=== PATIENT | female | born 1975 | race African-American/Black ===

== ENCOUNTER 2021-12-25 11:51 | Observation (INO) | payer OTHER ==
[~2021-12-25] VITALS: Ht 162.6 cm; Wt 114.0 kg
--- NOTE | 2021-12-25 12:50 | NUR ---
PATIENT TO ROOM VIA WHEELCHAIR.
[2021-12-25 14:46] LABS: HEMOGLOBIN 9.5 g/dl (12.0-16.0); IMMATURE GRANULOCYTES 0.1 % (0.0-5.0); MEAN CELL VOLUME 84.8 fL CALC (80.0-100.0); MEAN CORPUSCULAR HGB 27.8 pG CALC (26.0-32.0); MEAN CORPUSCULAR HGB CONC 32.8 g/dL CAL (32.0-36.0); NEUT# 6.27 thou/uL (2.00-7.15); RED BLOOD COUNT 3.42 mill/uL (4.20-5.60); RED CELL DISTRI WIDTH 18.7 % (11.5-15.5)
[2021-12-25 15:06] LABS: ALBUMIN 3.2 g/dL (3.2-5.0); ALKALINE PHOSPHATASE 453 u/l (38-126); AMYLASE 71 u/l (30-110); ANION GAP 9 (6-22 (CALC)); BILIRUBIN, TOTAL 1.9 mg/dL (0.0-1.4); BUN 4 mg/dL (7-17); BUN/CREATININE RATIO 7 (12-20 (CALC)); CARBON DIOXIDE 39 mmol/l (22-30); CHLORIDE 92 mmol/l (95-108); CREATININE 0.7 mg/dL (0.5-1.0); GFR > 60 ML/MIN (>=60 (CALC)); GFR FOR AFR.AMER. > 60 ML/MIN (>=60 (CALC)); LIPASE 396 u/l (23-300); SGOT/AST 263 u/l (14-36); SODIUM 138 mmol/l (137-146); TOTAL PROTEIN 8.9 g/dL (6.3-8.2)
[2021-12-25 15:09] LABS: POTASSIUM 1.8 mmol/l (3.5-5.1)
[2021-12-25] MEDS ORDERED: CYMBALTA60 MG PO (15:48)
[2021-12-25] MEDS ORDERED: PEPCID20 MG PO (15:48)
[2021-12-25] MEDS ORDERED: LYRICA50 MG PO (15:48)
[2021-12-25] MEDS ORDERED: TIZANIDINE HCL4 M1 PO (15:49)
[2021-12-25] MEDS ORDERED: FOLIC ACID1 MG PO (15:49)
[2021-12-25 19:41] LABS: URINE BILIRUBIN - DIPSTICK NEGATIVE (NEGATIVE); URINE BLOOD DIPSTICK NEGATIVE (NEGATIVE); URINE COLOR YELLOW; URINE GLUCOSE - DIPSTICK NEGATIVE (NEGATIVE); URINE KETONE TRACE mg/dL (NEGATIVE); URINE LEUK ESTERASE NEGATIVE (NEGATIVE); URINE PROTEIN - DIPSTICK NEGATIVE (NEG-TRACE); URINE SPECIFIC GRAVITY <=1.005; URINE UROBILINOGEN - DIPSTICK 0.2 E.U./dL (0.2)
[2021-12-25 19:45] LABS: URINE NITRITE - DIPSTICK NEGATIVE (Negative)
[2021-12-25 20:00] VITALS: BP 124/70
[2021-12-25 20:45] VITALS: BP 129/76
[2021-12-25 21:00] VITALS: BP 131/64
[2021-12-25 21:15] VITALS: BP 130/77
[2021-12-25 21:30] VITALS: BP 120/83
[2021-12-25 22:00] VITALS: BP 114/83
--- NOTE | 2021-12-25 22:43 | NUR ---
MINIMAL RELIEF WITH LORTAB, MORPHINE GIVEN IV. REPOSITIONED. LIGHT OFF.
[2021-12-26] VITALS: BP 119/77
--- NOTE | 2021-12-26 02:40 | NUR ---
MEDICATED FOR LOWER BACK PAIN. OTHERWISE EXAM UNCHANGED.
[2021-12-26 04:00] VITALS: BP 109/78
--- NOTE | 2021-12-26 04:47 | NUR ---
labs drawn by phleobotomist. resting quietly.
[2021-12-26 05:15] LABS: HEMATOCRIT 30.9 % (37.0-47.0); HEMOGLOBIN 9.9 g/dl (12.0-16.0); MEAN CELL VOLUME 86.6 fL CALC (80.0-100.0); MEAN CORPUSCULAR HGB 27.7 pG CALC (26.0-32.0); RED BLOOD COUNT 3.57 mill/uL (4.20-5.60)
[2021-12-26 05:43] LABS: ALBUMIN 3.3 g/dL (3.2-5.0); ALKALINE PHOSPHATASE 468 u/l (38-126); ANION GAP 11 (6-22 (CALC)); BILIRUBIN, TOTAL 2.4 mg/dL (0.0-1.4); BUN 3 mg/dL (7-17); BUN/CREATININE RATIO 4 (12-20 (CALC)); CARBON DIOXIDE 33 mmol/l (22-30); CHLORIDE 99 mmol/l (95-108); CREATININE 0.6 mg/dL (0.5-1.0); GFR > 60 ML/MIN (>=60 (CALC)); GFR FOR AFR.AMER. > 60 ML/MIN (>=60 (CALC)); MAGNESIUM 1.9 mg/dL (1.6-2.3); POTASSIUM 2.7 mmol/l (3.5-5.1); SGOT/AST 295 u/l (14-36); SODIUM 140 mmol/l (137-146); TOTAL PROTEIN 9.2 g/dL (6.3-8.2)
--- NOTE | 2021-12-26 05:50 | NUR ---
RESTING QUIETLY. NAD.
[2021-12-26] MEDS ORDERED: FENTANYL25 MCG/HR TD (07:58)
[2021-12-26] MEDS ORDERED: HYDROMORPHON4 MG PO (07:58)
--- NOTE | 2021-12-26 08:16 | NUR ---
PT IS AWAKE, ALERT, ORIENTED X 3. LUNGS ARE CLEAR, RA. PT WITH COLOSTOMY NOTED TO LEFT LOWER ABDOMEN, SELF CARE. PT WITH DISCOMFORT TO LOWER BACK PER CANCER, TO ASK DR REA ABOUT INCREASING PAIN MEDS WHEN HE ROUNDS.
--- NOTE | 2021-12-26 11:11 | NUR ---
PT SEEN BY DR REA THIS MORNING, PAIN MEDS ADJUSTED TO WHAT SHE TAKES AT HOME. COLOSTOMY BAG NEEDED REPLACEMENT, CORRECT SIZE NOT AVAILABLE IN ICU, WAS GOTTEN FROM MED/SURG. PT HELPFUL IN CLEANUP BOWELS MOVED WHEN COLOSTOMY WAS OFF.
--- NOTE | 2021-12-26 13:25 | NUR ---
PT OFFERS TO ASK HER FAMILY TO BRING IN COLOSTOMY BAG OURS IS LEAKING. SHE STATES THAT HERS DO NOT LEAK LIKE OURS. NO COMPLAINT OF PAIN SINCE DILAUDID GIVEN.
--- NOTE | 2021-12-26 16:10 | NUR ---
PT HAS HAD VISITS FROM FAMILY TODAY. SHE HAS HAD FAMILY BRING IN ONE OF HER COLOSTOMY BAGS, WHICH IS WORKING WELL. NO FURTHER COMPLAINTS OF PAIN BEFORE.
[2021-12-26 18:00] VITALS: BP 117/76
--- NOTE | 2021-12-26 19:00 | NUR ---
REPORT RECEIVED FROM López PEREZ RN, CARE OF PT ASSUMED AT THIS TIME.
[2021-12-26 20:00] VITALS: BP 126/74
--- NOTE | 2021-12-26 20:10 | NUR ---
BLOOD SAMPLE COLLECTED FROM L-SUBCLAVIAN PORT AND SENT TO LAB.
--- NOTE | 2021-12-26 20:44 | NUR ---
LAB RESULTS REVIEWED. K+ 2.9 mmol/L. CONTINUING IN EXPECTED POSITIVE TREND.
[2021-12-27 04:00] VITALS: BP 119/62
--- NOTE | 2021-12-27 05:40 | NUR ---
AM LABS COLLECTED VIA PORT.
[2021-12-27 05:55] LABS: HEMATOCRIT 26.1 % (37.0-47.0); MEAN CELL VOLUME 88.2 fL CALC (80.0-100.0); MEAN CORPUSCULAR HGB CONC 30.7 g/dL CAL (32.0-36.0); RED BLOOD COUNT 2.96 mill/uL (4.20-5.60); RED CELL DISTRI WIDTH 18.7 % (11.5-15.5)
[2021-12-27 06:24] LABS: ALBUMIN 2.7 g/dL (3.2-5.0); ALKALINE PHOSPHATASE 377 u/l (38-126); ANION GAP 4 (6-22 (CALC)); BILIRUBIN, TOTAL 1.7 mg/dL (0.0-1.4); BUN < 2 mg/dL (7-17); CARBON DIOXIDE 36 mmol/l (22-30); CHLORIDE 100 mmol/l (95-108); CREATININE 0.5 mg/dL (0.5-1.0); GFR > 60 ML/MIN (>=60 (CALC)); GFR FOR AFR.AMER. > 60 ML/MIN (>=60 (CALC)); MAGNESIUM 1.5 mg/dL (1.6-2.3); POTASSIUM 3.1 mmol/l (3.5-5.1); SGOT/AST 228 u/l (14-36); SODIUM 138 mmol/l (137-146); TOTAL PROTEIN 7.9 g/dL (6.3-8.2)
[2021-12-27 07:41] VITALS: BP 111/73
--- NOTE | 2021-12-27 09:00 | NUR ---
PT SEEN AWAKE, ALERT, ORIENTED X 3. LUNGS CLEAR BUT DIMINISHED IN BASES, RA. PT COMFORTABLE WITH PAIN MEDS, ASKS APPROPRIATELY.
[2021-12-27] MEDS ORDERED: KLOR-CON M2020 MEQ PO (09:04)
[2021-12-27] MEDS ORDERED: MAGNESIUM OXID400 M1 PO (09:04)
[2021-12-27 12:26] VITALS: BP 107/71
--- NOTE | 2021-12-27 13:00 | NUR ---
PT HAS BEEN TAKEN TO MED/SURG FOR SHOWER. DISCHARGE PLANS WERE SCRUBBED FOR TODAY PER DROPPING HGB AND POSITIVE BLOOD IN STOOL FROM RECTUM. PT AGREEABLE, NO DISTRESS.
[2021-12-27 15:26] VITALS: BP 130/70
--- NOTE | 2021-12-27 17:28 | NUR ---
PT MOVED TO MED/SURG ROOM 273 AT THIS TIME, REPORT WAS PROVIDED TO LILLIAN SKINNER.
--- NOTE | 2021-12-27 17:28 | NUR ---
PT ARRIVED VIA WC WITH IRENA GARDNER. PT HAS LEFT SUBLAVIAN PORT. INFUSING IVF PER EMAR ORDER. PT IS ON TELE, CONTINOUS MONITORING PER ED. PT HAS COLOSTOMY BAG IN TH MIDDLE OF THE ABD. O2 IN PLACE VIA NC @2L. FALL/SAFETY PRECAUTIONS IN PLACE. CALL LIGHT WITHIN REACH.
[2021-12-27 18:58] VITALS: BP 108/77
--- NOTE | 2021-12-27 19:30 | NUR ---
PATIENT RESTING IN BED AT THIS TIME-AWAKE ALERT AND ORIENTEDX3. TELE MONITOR IN PLACE. IVF NS WITH 40MEQKCL PATENT AN DINFUSING VIA LEFT UPPER CHEST PORT AT 100CC/HR. SITE IS HEALTHY WITH GOOD BLOOD RETURN. PATIENT C/O RIGHT UPPER CHEST PAIN-MEDICATED WITH MORPHINE 2MG IVP ORDERED FOR PAIN. SAFETY PRECAUTIONS REINFORCED. CALL LIGHT IN REACH. WILL CONT TO MONITOR.
--- NOTE | 2021-12-28 02:03 | NUR ---
PATIENT RESTING IN BED AT THIS TIME-AWAKE AND ALERT C/O RIGHT UPPER CHEST PAIN-8/10 ON PAIN SCALE. MEDICATED WITH DILAUDID 4MG PO FOR 8/10 PAIN SCALE. IVF PATENT ANDINFUSING VIA LEFT CHEST PORT AT 100CC/HR. SITE REMAINS HEALTHY. OSTOMY APPLIANCE INTACT AT THIS TIME. SAFETY PRECAUTIONS REINFORCED. CALL LIGHT IN REACH. WILL CONT TO MONITOR.
--- NOTE | 2021-12-28 03:37 | NUR ---
PATIENT POSITIONED ON LEFT SIDE AT THIS TIME. EYES ARE CLOSED AND RESPS ARE EVEN AND UNLABORED. TELE MONITOR IN PLACE. IVF PATENT AND INFUSING VIA LEFT UPPER CHEST PORT AT 100CC/HR. OSTOMY APPLIANCE IN PLACE. CALL LIGHT IN REACH. WILL CONT TO MONITOR.
[2021-12-28 04:00] VITALS: BP 121/71
--- NOTE | 2021-12-28 04:42 | NUR ---
PATIENT UP TO THE BSC AT THIS TIME-AWAKE AND CONT TO C/O SEVERE RIGHT UPPER CHEST PAIN. LAB WORK DRAWN FROM LEFT UPPER CHEST PORT WITHOUT ANY DIFFICULTY-GOOD BLOOD RETURN-FLUSHED PER PROTOCOL AFTER BLOOD DRAW-IVF NS WITH 40MEQ OF KCL INFUSING AT 100CC/HR. SITE REMAINS HEALTHY. MEDICATED WITH MORPHINE 2MG IVP WITH MINIMAL PAIN RELIEF. TELE MONITOR IN PLACE WITH LAST READING OF SR-90.SAFETY PRECAUTIONS REINFORCED. CALL LIGHT IN REACH. WILL CONT TO MONITOR.
[2021-12-28 06:19] LABS: HEMATOCRIT 26.1 % (37.0-47.0); HEMOGLOBIN 8.2 g/dl (12.0-16.0); MEAN CELL VOLUME 88.8 fL CALC (80.0-100.0); MEAN CORPUSCULAR HGB 27.9 pG CALC (26.0-32.0); MEAN CORPUSCULAR HGB CONC 31.4 g/dL CAL (32.0-36.0); RED BLOOD COUNT 2.94 mill/uL (4.20-5.60); RED CELL DISTRI WIDTH 18.6 % (11.5-15.5)
[2021-12-28 06:41] LABS: ALBUMIN 2.7 g/dL (3.2-5.0); ALKALINE PHOSPHATASE 396 u/l (38-126); ANION GAP 8 (6-22 (CALC)); BILIRUBIN, TOTAL 1.6 mg/dL (0.0-1.4); BUN < 2 mg/dL (7-17); CARBON DIOXIDE 34 mmol/l (22-30); CHLORIDE 100 mmol/l (95-108); CREATININE 0.5 mg/dL (0.5-1.0); GFR > 60 ML/MIN (>=60 (CALC)); GFR FOR AFR.AMER. > 60 ML/MIN (>=60 (CALC)); MAGNESIUM 1.5 mg/dL (1.6-2.3); POTASSIUM 3.7 mmol/l (3.5-5.1); SGOT/AST 220 u/l (14-36); SODIUM 138 mmol/l (137-146); TOTAL PROTEIN 8.1 g/dL (6.3-8.2)
--- NOTE | 2021-12-28 08:10 | NUR ---
PATIENT WAS SITTING UP IN BED. PATIENT WAS EATING BREAKFAST. ALERT AND ORIENTATED X4. NO APPARENT DISTRESS. PATIENT C/O RIGHT SIDED CHEST PAIN, WILL MEDICATE WITH PRN MEDICATION ORDERED. IV SITES APPEARED HEALTHY. DISCUSSED PLAN OF CARE AND SAFETY PRECAUTIIONS. CALL LIGHT WITHIN REACH, WILL CONTINUE TO MONITOR.
--- NOTE | 2021-12-28 09:32 | NUR ---
PHYSICIAN AT BEDSIDE.
--- NOTE | 2021-12-28 12:50 | NUR ---
RN SATHYA AT BEDSIDE TO FLUSH AND DEACCESS PORT.
--- NOTE | 2021-12-28 13:08 | NUR ---
Discharge instructions given. Patient verbalizes understanding of same. Discharged in stable condition via Wheelchair to Home with family. All belongings sent with pt.
== END 2021-12-28 13:08 | disposition home or self-care (01) ==
LOC: ED 11:51 → ED-I 17:23 → ED 17:45 → ICU 17:46 → MS2 12-27 17:23
PROVIDERS: Emergency Medicine; ADMIT Internal Medicine; ATTEND Internal Medicine
DX: E87.6 Hypokalemia (principal); E83.42 Hypomagnesemia; R11.2 Nausea with vomiting, unspecified; R19.7 Diarrhea, unspecified; C18.9 Malignant neoplasm of colon, unspecified; C78.7 Secondary malignant neoplasm of liver and intrahepatic bile duct; D50.9 Iron deficiency anemia, unspecified; G89.3 Neoplasm related pain (acute) (chronic); J45.909 Unspecified asthma, uncomplicated; G62.0 Drug-induced polyneuropathy; T45.1X5S Adverse effect of antineoplastic and immunosuppressive drugs, sequela; Z87.891 Personal history of nicotine dependence; Z79.891 Long term (current) use of opiate analgesic; Z92.21 Personal history of antineoplastic chemotherapy; Z93.3 Colostomy status; Z20.822 Contact with and (suspected) exposure to COVID-19
CPT/HCPCS: G0378; J1650; J3475; Q9967

== ENCOUNTER 2022-01-02 13:44 | Emergency (ER) | payer OTHER ==
[~2022-01-02] VITALS: Ht 162.6 cm; Wt 113.0 kg
[~2022-01-02 13:44] MED LIST: CYMBALTA60 MG PO; FENTANYL25 MCG/HR TD; FOLIC ACID1 MG PO; HYDROMORPHON4 MG PO; KLOR-CON M2020 MEQ PO; LYRICA50 MG PO; MAGNESIUM OXID400 M1 PO; PEPCID20 MG PO; TIZANIDINE HCL4 M1 PO
[2022-01-02 14:52] LABS: HEMATOCRIT 25.5 % (37.0-47.0); HEMOGLOBIN 8.2 g/dl (12.0-16.0); MEAN CELL VOLUME 85.3 fL CALC (80.0-100.0); MEAN CORPUSCULAR HGB 27.4 pG CALC (26.0-32.0); MEAN CORPUSCULAR HGB CONC 32.2 g/dL CAL (32.0-36.0); NEUT# 4.28 thou/uL (2.00-7.15); RED BLOOD COUNT 2.99 mill/uL (4.20-5.60); RED CELL DISTRI WIDTH 19.2 % (11.5-15.5)
[2022-01-02 15:06] LABS: ALBUMIN 2.9 g/dL (3.2-5.0); ALKALINE PHOSPHATASE 523 u/l (38-126); BILIRUBIN, TOTAL 2.1 mg/dL (0.0-1.4); BUN 3 mg/dL (7-17); BUN/CREATININE RATIO 7 (12-20 (CALC)); CARBON DIOXIDE 32 mmol/l (22-30); CHLORIDE 102 mmol/l (95-108); CREATININE 0.5 mg/dL (0.5-1.0); GFR > 60 ML/MIN (>=60 (CALC)); GFR FOR AFR.AMER. > 60 ML/MIN (>=60 (CALC)); SGOT/AST 184 u/l (14-36); SODIUM 139 mmol/l (137-146); TOTAL PROTEIN 8.5 g/dL (6.3-8.2)
[2022-01-02 15:18] LABS: GFR > 60 ML/MIN (>=60 (CALC)); GFR FOR AFR.AMER. > 60 ML/MIN (>=60 (CALC))
[2022-01-02 15:22] LABS: ANION GAP 8 (6-22 (CALC)); POTASSIUM 2.7 mmol/l (3.5-5.1)
[2022-01-02 16:40] VITALS: BP 138/94
[2022-01-02 16:55] VITALS: BP 148/95
[2022-01-02 18:00] VITALS: BP 130/102
[2022-01-02 18:43] VITALS: BP 127/93
[2022-01-02 22:44] VITALS: BP 127/93
== END 2022-01-02 22:45 | disposition short-term general hospital (02) ==
LOC: ED 13:44
PROVIDERS: Family Medicine
DX: K92.1 Melena (principal); E87.6 Hypokalemia; C18.9 Malignant neoplasm of colon, unspecified; C78.7 Secondary malignant neoplasm of liver and intrahepatic bile duct; C78.02 Secondary malignant neoplasm of left lung; C78.01 Secondary malignant neoplasm of right lung; C78.89 Secondary malignant neoplasm of other digestive organs; D50.9 Iron deficiency anemia, unspecified; Z93.3 Colostomy status; Z90.49 Acquired absence of other specified parts of digestive tract
CPT/HCPCS: J3475; P9016

== ENCOUNTER 2022-01-19 22:45 | Emergency (ER) | payer OTHER ==
[~2022-01-19] VITALS: Ht 162.6 cm; Wt 110.0 kg
[2022-01-20 00:46] LABS: HEMATOCRIT 22.9 % (37.0-47.0); HEMOGLOBIN 7.5 g/dl (12.0-16.0); IMMATURE GRANULOCYTES 0.4 % (0.0-5.0); MEAN CELL VOLUME 86.7 fL CALC (80.0-100.0); MEAN CORPUSCULAR HGB 28.4 pG CALC (26.0-32.0); MEAN CORPUSCULAR HGB CONC 32.8 g/dL CAL (32.0-36.0); NEUT# 4.52 thou/uL (2.00-7.15); RED BLOOD COUNT 2.64 mill/uL (4.20-5.60); RED CELL DISTRI WIDTH 19.5 % (11.5-15.5)
[2022-01-20 00:59] LABS: ALBUMIN 2.5 g/dL (3.2-5.0); ALKALINE PHOSPHATASE 664 u/l (38-126); AMYLASE 44 u/l (30-110); ANION GAP 6 (6-22 (CALC)); BILIRUBIN, TOTAL 1.5 mg/dL (0.0-1.4); BUN 3 mg/dL (7-17); BUN/CREATININE RATIO 6 (12-20 (CALC)); CARBON DIOXIDE 28 mmol/l (22-30); CHLORIDE 107 mmol/l (95-108); CREATININE 0.4 mg/dL (0.5-1.0); GFR > 60 ML/MIN (>=60 (CALC)); GFR FOR AFR.AMER. > 60 ML/MIN (>=60 (CALC)); LIPASE 101 u/l (23-300); POTASSIUM 2.8 mmol/l (3.5-5.1); SGOT/AST 174 u/l (14-36); SODIUM 138 mmol/l (137-146); TOTAL PROTEIN 7.8 g/dL (6.3-8.2)
[2022-01-20 01:12] LABS: ACT PARTIAL THROMBO TIME 26.9 SECONDS (20.0-32.5); INTERNATIONAL NORMALIZED RATIO 1.2 RATIO (0.7-1.3); PROTHROMBIN TIME 12.3 SECONDS (9.0-12.5)
[2022-01-20 01:21] VITALS: BP 116/61
[2022-01-20 02:17] VITALS: BP 102/65
[2022-01-20 02:18] VITALS: BP 102/65
[2022-01-20 02:35] VITALS: BP 102/65
== END 2022-01-20 02:35 | disposition short-term general hospital (02) ==
LOC: ED 22:45
PROVIDERS: Family Medicine
DX: K92.2 Gastrointestinal hemorrhage, unspecified (principal); E87.6 Hypokalemia; C18.9 Malignant neoplasm of colon, unspecified; C78.7 Secondary malignant neoplasm of liver and intrahepatic bile duct; Z93.3 Colostomy status
CPT/HCPCS: P9016

== ENCOUNTER 2022-03-05 23:49 | Observation (INO) | payer OTHER ==
[~2022-03-05] VITALS: Ht 162.6 cm; Wt 106.0 kg
--- NOTE | 2022-03-05 23:49 | NUR ---
ADMIT VIA EMS A/O F WITH ABD PAIN N/V X WEEK HX COLON CA WITH COLOSTOMY ALSO SAW BLOOD IN STOMA THIS EVENING PT TOOK 8MG ZOFRAN STAPLE LASTER
[2022-03-06] VITALS (7 sets, daily range): BP systolic 85–135; BP diastolic 52–84
[2022-03-06 00:58] LABS: HEMATOCRIT 25.5 % (37.0-47.0); HEMOGLOBIN 8.6 g/dl (12.0-16.0); IMMATURE GRANULOCYTES 0.3 % (0.0-5.0); MEAN CELL VOLUME 89.8 fL CALC (80.0-100.0); MEAN CORPUSCULAR HGB 30.3 pG CALC (26.0-32.0); MEAN CORPUSCULAR HGB CONC 33.7 g/dL CAL (32.0-36.0); NEUT# 1.61 thou/uL (2.00-7.15); RED BLOOD COUNT 2.84 mill/uL (4.20-5.60); RED CELL DISTRI WIDTH 15.8 % (11.5-15.5)
--- NOTE | 2022-03-06 01:11 | NUR ---
PT REPORTS PAIN HAS GONE.NO FURTHER N/V
[2022-03-06 01:14] LABS: ALKALINE PHOSPHATASE 601 u/l (38-126); AMYLASE 94 u/l (30-110); ANION GAP 5 (6-22 (CALC)); BILIRUBIN, TOTAL 0.9 mg/dL (0.0-1.4); BUN 6 mg/dL (7-17); BUN/CREATININE RATIO 14 (12-20 (CALC)); CARBON DIOXIDE 33 mmol/l (22-30); CHLORIDE 102 mmol/l (95-108); CPK 25 u/l (30-165); CREATININE 0.4 mg/dL (0.5-1.0); GFR > 60 ML/MIN (>=60 (CALC)); GFR FOR AFR.AMER. > 60 ML/MIN (>=60 (CALC)); LIPASE 543 u/l (23-300); POTASSIUM 2.7 mmol/l (3.5-5.1); SGOT/AST 93 u/l (14-36); SODIUM 136 mmol/l (137-146); TOTAL PROTEIN 7.6 g/dL (6.3-8.2)
[2022-03-06 01:25] LABS: MAGNESIUM 0.9 mg/dL (1.6-2.3)
[2022-03-06 01:30] LABS: URINE BILIRUBIN - DIPSTICK NEGATIVE (NEGATIVE); URINE BLOOD DIPSTICK NEGATIVE (NEGATIVE); URINE COLOR YELLOW; URINE GLUCOSE - DIPSTICK NEGATIVE (NEGATIVE); URINE KETONE NEGATIVE (NEGATIVE); URINE LEUK ESTERASE NEGATIVE (NEGATIVE); URINE PH 7.5 (4.5-8.0); URINE PROTEIN - DIPSTICK NEGATIVE (NEG-TRACE); URINE UROBILINOGEN - DIPSTICK 0.2 E.U./dL (0.2)
[2022-03-06 01:35] LABS: URINE NITRITE - DIPSTICK NEGATIVE (Negative)
--- NOTE | 2022-03-06 02:34 | NUR ---
SLEEPING IN INTERVALS PAINFREE NO N/V
--- NOTE | 2022-03-06 03:40 | NUR ---
REMEDICATED FOR PAIN
--- NOTE | 2022-03-06 04:20 | NUR ---
PHONE REPORT TO SHELLY SKINNER
--- NOTE | 2022-03-06 04:25 | NUR ---
PT TRANSPORTED TO [facility] RM 269 IN IMPROVED STABLE CONDITION
--- NOTE | 2022-03-06 05:58 | NUR ---
PATIENT ADMITTED FROM ER VIA STRETCHER WITH ER STAFF IN ATTENDANCE. PATIENT ABLE TO TRANSFER TO BED. PATIENT IS EXTREMELY DROWSY FROM PAIN MEDS IN ER. VS TAKEN AND RECORDED. IVF NS 40KCL PATENT AND INFUSING VIA LEFT UPPER CHEST PORT AT 250CC/HR ORDERED. SITE IS HEALTHY AT THIS TIME. TELE MONITOR IN PLACE WITH READING OF SR-99. OSTOMY APPLIANCE INTACT WITH SMALL AMT OF SOFT BROWN STOOL PRESENT. ABD IS SOFT. LUNGS ARE CLEAR. NO PERIPHERAL EDEMA NOTED. PATIENT IS AROUSABLE TO NAME BUT FALLS BACK TO SLEEP. UNABLE TO ASSIST WITH ADMISSION QUESTIONS AT THIS TIME. OLD RECORDS HELPED WITH PMH. UNABLE TO ORIENT TO ROOM AND SURROUNDINGS AT THIS TIME-TOO DROWSY. CALL LIGHT IN REACH. WILL CONT TO MONITOR.
--- NOTE | 2022-03-06 07:53 | NUR ---
SHIFT CHANGE REPORT, PT SLEEPING BUT AROUSED TO VERBAL STIMULI, ORIENTED, C/O THROBBING MID-ABD PAIN @ 8/10, TELE MONITOR IN PLACE, IVF INFUSING, COLOSTOMY BAG IN PLACE, UP TO BR AT THIS TIME AND DID COLOSTOMY CARE, PAIN ISSUE ADDRESSED, CALL MACHADO IN REACH AND BED LOCKED IN LOWEST POSITION.
--- NOTE | 2022-03-06 11:46 | NUR ---
BP MEASURED, REPORTED AND RECORDED BY LANGUAGE ARTS TEACHER SHOWING 85/52, PT ENCOURAGED TO GET OOB AND SIT IN RECLINER. MD NOTIFIED () AND ORDERED BOLUS X 1 OF CURRENT IV FLUIDS IF BP IS STILL LOW AFTER REPOSITIONING. PB MEASURED WHILE SITTING UP IN RECLINER + 101/63, 83. WILL CONTINUE TO MONITOR AND ADDRESS NEEDS
--- NOTE | 2022-03-06 15:21 | NUR ---
RESTING N BED CONVERSING ON PHONE AT THIS TIME, ALL NEEDS ADDRESSED, PAIN CONTROLLED WITH ANALGESICS.
--- NOTE | 2022-03-06 16:06 | NUR ---
PT RESTING IN BED AT THIS TIME, BP = 87/52, BOLUS X I LT 0.9NS & 20K INITIATED PER MD'S ORDER, WILL CONTINUE TO MONITOR.
--- NOTE | 2022-03-06 18:04 | NUR ---
PT REQUESTED PAIN MED BUT ON ARRIVAL TO DELIVER MED PT WAS FAST ALSEEP AND DID NOT AWAKEN TO VERBAL STIMULI, SHE WOKE UP WHEN BLOOD WAS BEING DRAWN ONLY TO ASK FOR HER PAIN MED AND FELL ASLEEP AGAIN.
[2022-03-06 18:26] LABS: BUN 2 mg/dL (7-17); BUN/CREATININE RATIO 6 (12-20 (CALC)); CARBON DIOXIDE 29 mmol/l (22-30); CHLORIDE 107 mmol/l (95-108); CREATININE 0.4 mg/dL (0.5-1.0); GFR > 60 ML/MIN (>=60 (CALC)); GFR FOR AFR.AMER. > 60 ML/MIN (>=60 (CALC)); SODIUM 138 mmol/l (137-146)
[2022-03-06 18:28] LABS: ANION GAP 5 (6-22 (CALC)); POTASSIUM 3.4 mmol/l (3.5-5.1)
--- NOTE | 2022-03-06 20:15 | NUR ---
PATIENT RESTING IN BED ON HER LEFT SIDE. ALERT AND ORIENTED. ABLE TO MAKE NEEDS KNOWN. PLEASANT. AMBULATED TO THE BATHROOM. STEADY ON HER FEET. COLOSTOMY BAG INTACT. NO DISTRESS NOTED. ASSESSMENT COMPLETE. PATIENT TOLERATING HER CLEAR LIQUID DIET. CALL LIGHT AND BELONGINGS REMAIN IN REACH.
[2022-03-07 00:14] VITALS: BP 106/59
--- NOTE | 2022-03-07 01:20 | NUR ---
RECEIVED PRN PAIN MEDICATION PER REQUEST. NO SIGNS OF DISTRESS. PATIENT CONTINUES TO AMBULATE TO THE BATHROOM WITHOUT DIFFICULTY. CALL LIGHT AND BELONGINGS REMAIN IN REACH.
[2022-03-07 04:13] VITALS: BP 116/73
--- NOTE | 2022-03-07 04:29 | NUR ---
PATIENT RESTING IN BED. RECEIVED PRN PAIN MEDICATION PER REQUEST. TOLERATED PAIN MEDICATION WELL. MORNING LABS ALSO DRAWN WELL WITHOUT DIFFICULTY. PATIENT RECEIVED ICE WATER AT BEDSIDE. NO DISTRESS NOTED. CALL LIGHT AND BELONGINGS REMAIN IN REACH.
[2022-03-07 05:20] LABS: HEMATOCRIT 23.6 % (37.0-47.0); HEMOGLOBIN 7.8 g/dl (12.0-16.0); IMMATURE GRANULOCYTES 0.4 % (0.0-5.0); MEAN CELL VOLUME 91.8 fL CALC (80.0-100.0); MEAN CORPUSCULAR HGB 30.4 pG CALC (26.0-32.0); MEAN CORPUSCULAR HGB CONC 33.1 g/dL CAL (32.0-36.0); NEUT# 0.81 thou/uL (2.00-7.15); RED BLOOD COUNT 2.57 mill/uL (4.20-5.60); RED CELL DISTRI WIDTH 15.9 % (11.5-15.5)
[2022-03-07 05:37] LABS: ALBUMIN 2.5 g/dL (3.2-5.0); ALKALINE PHOSPHATASE 528 u/l (38-126); AMYLASE 56 u/l (30-110); ANION GAP 5 (6-22 (CALC)); BILIRUBIN, TOTAL 0.7 mg/dL (0.0-1.4); BUN < 2 mg/dL (7-17); CARBON DIOXIDE 29 mmol/l (22-30); CHLORIDE 108 mmol/l (95-108); CREATININE 0.4 mg/dL (0.5-1.0); GFR > 60 ML/MIN (>=60 (CALC)); GFR FOR AFR.AMER. > 60 ML/MIN (>=60 (CALC)); POTASSIUM 3.3 mmol/l (3.5-5.1); SGOT/AST 74 u/l (14-36); SODIUM 139 mmol/l (137-146); TOTAL PROTEIN 6.6 g/dL (6.3-8.2)
--- NOTE | 2022-03-07 07:47 | NUR ---
Patient is screened for physical medicine intervention and no needs are identified at this time
--- NOTE | 2022-03-07 08:00 | NUR ---
SHIFT CHANGE REPORT, PT AWAKE ALERT AND ORIENTED RESTING IN BED, C/O BACK AND ABD PAIN, CINCERN ADDRESSED, TELE MONITOR IN PLACE, IVF INFUSING, CALL MACHADO IN REACH AND BED LOCKED IN LOWEST POSITION.
[2022-03-07 08:40] VITALS: BP 105/74
[2022-03-07 10:40] VITALS: BP 104/69
--- NOTE | 2022-03-07 12:00 | NUR ---
MD LEANA ADDRESSES MEDICAL ISSUES, PT INFORMED, AND EDUCATED ON PLAN OF CARE.
[2022-03-07 14:41] VITALS: BP 91/59
--- NOTE | 2022-03-07 18:15 | NUR ---
Discharge instructions given. Patient verbalizes understanding of same. Discharged in fair condition via Taxi to Home with *Other. All belongings sent with pt.
== END 2022-03-07 18:14 | disposition home or self-care (01) ==
LOC: ED 23:49 → ED-I 03-06 03:12 → ED 03-06 03:47 → MS2 03-06 03:48
PROVIDERS: Family Medicine; ADMIT Internal Medicine; ATTEND Internal Medicine
DX: K85.90 Acute pancreatitis without necrosis or infection, unspecified (principal); E87.6 Hypokalemia; E83.42 Hypomagnesemia; C18.9 Malignant neoplasm of colon, unspecified; C78.7 Secondary malignant neoplasm of liver and intrahepatic bile duct; G89.3 Neoplasm related pain (acute) (chronic); D64.9 Anemia, unspecified; J45.909 Unspecified asthma, uncomplicated; G62.0 Drug-induced polyneuropathy; T45.1X5A Adverse effect of antineoplastic and immunosuppressive drugs, initial encounter; Z87.891 Personal history of nicotine dependence; Z79.899 Other long term (current) drug therapy; Z93.3 Colostomy status; Z20.822 Contact with and (suspected) exposure to COVID-19
CPT/HCPCS: G0378; J3475; Q9967; S0164

== ENCOUNTER 2022-03-22 13:07 | Inpatient (IN) | payer OTHER ==
[~2022-03-22] VITALS: Ht 162.6 cm; Wt 115.0 kg
[2022-03-22 13:13] VITALS: BP 115/76
[2022-03-22 13:16] VITALS: BP 123/77
[2022-03-22 13:31] VITALS: BP 125/79
[2022-03-22 13:39] VITALS: BP 123/79
[2022-03-22 13:43] LABS: HEMATOCRIT 24.9 % (37.0-47.0); HEMOGLOBIN 8.3 g/dl (12.0-16.0); IMMATURE GRANULOCYTES 0.2 % (0.0-5.0); MEAN CELL VOLUME 89.9 fL CALC (80.0-100.0); MEAN CORPUSCULAR HGB CONC 33.3 g/dL CAL (32.0-36.0); NEUT# 2.68 thou/uL (2.00-7.15); RED BLOOD COUNT 2.77 mill/uL (4.20-5.60); RED CELL DISTRI WIDTH 15.8 % (11.5-15.5)
[2022-03-22 13:53] LABS: ALKALINE PHOSPHATASE 593 u/l (38-126); ANION GAP 8 (6-22 (CALC)); BILIRUBIN, TOTAL 1.4 mg/dL (0.0-1.4); BUN 5 mg/dL (7-17); BUN/CREATININE RATIO 9 (12-20 (CALC)); CARBON DIOXIDE 31 mmol/l (22-30); CHLORIDE 100 mmol/l (95-108); CREATININE 0.6 mg/dL (0.5-1.0); GFR > 60 ML/MIN (>=60 (CALC)); GFR FOR AFR.AMER. > 60 ML/MIN (>=60 (CALC)); LIPASE 100 u/l (23-300); POTASSIUM 2.5 mmol/l (3.5-5.1); SGOT/AST 163 u/l (14-36); SODIUM 136 mmol/l (137-146); TOTAL PROTEIN 7.8 g/dL (6.3-8.2)
[2022-03-22 14:04] LABS: MYOGLOBIN 14 ng/mL (0 - 62)
[2022-03-22] MEDS ORDERED: FENTANYL25 MCG/HR TD (16:42)
[2022-03-22 17:48] LABS: URINE BILIRUBIN - DIPSTICK NEGATIVE (NEGATIVE); URINE BLOOD DIPSTICK NEGATIVE (NEGATIVE); URINE COLOR YELLOW; URINE GLUCOSE - DIPSTICK NEGATIVE (NEGATIVE); URINE KETONE NEGATIVE (NEGATIVE); URINE LEUK ESTERASE NEGATIVE (NEGATIVE); URINE NITRITE - DIPSTICK NEGATIVE (Negative); URINE PROTEIN - DIPSTICK NEGATIVE (NEG-TRACE); URINE SPECIFIC GRAVITY <=1.005
[2022-03-23] VITALS (7 sets, daily range): BP systolic 107–123; BP diastolic 58–70
[2022-03-23 06:08] LABS: HEMATOCRIT 25.2 % (37.0-47.0); HEMOGLOBIN 8.4 g/dl (12.0-16.0); MEAN CELL VOLUME 90.3 fL CALC (80.0-100.0); MEAN CORPUSCULAR HGB 30.1 pG CALC (26.0-32.0); MEAN CORPUSCULAR HGB CONC 33.3 g/dL CAL (32.0-36.0); RED BLOOD COUNT 2.79 mill/uL (4.20-5.60); RED CELL DISTRI WIDTH 15.8 % (11.5-15.5)
[2022-03-23 06:14] LABS: BUN 3 mg/dL (7-17); BUN/CREATININE RATIO 6 (12-20 (CALC)); CARBON DIOXIDE 30 mmol/l (22-30); CHLORIDE 99 mmol/l (95-108); CREATININE 0.5 mg/dL (0.5-1.0); GFR > 60 ML/MIN (>=60 (CALC)); GFR FOR AFR.AMER. > 60 ML/MIN (>=60 (CALC)); SODIUM 135 mmol/l (137-146)
[2022-03-23 06:23] LABS: ANION GAP 9 (6-22 (CALC)); MAGNESIUM 1.3 mg/dL (1.6-2.3); POTASSIUM 3.1 mmol/l (3.5-5.1)
[2022-03-24 00:57] VITALS: BP 113/67
[2022-03-24 03:55] VITALS: BP 108/69
[2022-03-24 05:18] LABS: HEMATOCRIT 25.3 % (37.0-47.0); HEMOGLOBIN 8.5 g/dl (12.0-16.0); MEAN CELL VOLUME 90.4 fL CALC (80.0-100.0); MEAN CORPUSCULAR HGB 30.4 pG CALC (26.0-32.0); MEAN CORPUSCULAR HGB CONC 33.6 g/dL CAL (32.0-36.0); RED BLOOD COUNT 2.8 mill/uL (4.20-5.60); RED CELL DISTRI WIDTH 15.6 % (11.5-15.5)
[2022-03-24 05:42] LABS: ANION GAP 7 (6-22 (CALC)); BUN 2 mg/dL (7-17); BUN/CREATININE RATIO 5 (12-20 (CALC)); CARBON DIOXIDE 33 mmol/l (22-30); CHLORIDE 100 mmol/l (95-108); CREATININE 0.5 mg/dL (0.5-1.0); GFR > 60 ML/MIN (>=60 (CALC)); GFR FOR AFR.AMER. > 60 ML/MIN (>=60 (CALC)); POTASSIUM 2.9 mmol/l (3.5-5.1); SODIUM 137 mmol/l (137-146)
[2022-03-24 07:13] VITALS: BP 111/64
[2022-03-24 10:14] VITALS: BP 116/69
== END 2022-03-24 13:39 | disposition home or self-care (01) | DRG 948 ==
LOC: ED 13:07 → ED-I 13:39 → ED 13:39 → ED-I 15:52 → ED 16:32 → MS2 16:32
PROVIDERS: Nurse Practitioner; ADMIT Hospitalist; ATTEND Hospitalist
DX: G89.3 Neoplasm related pain (acute) (chronic) (principal); C18.9 Malignant neoplasm of colon, unspecified; C78.7 Secondary malignant neoplasm of liver and intrahepatic bile duct; C78.89 Secondary malignant neoplasm of other digestive organs; Z68.41 Body mass index [BMI] 40.0-44.9, adult; E87.6 Hypokalemia; E83.42 Hypomagnesemia; D50.9 Iron deficiency anemia, unspecified; G62.0 Drug-induced polyneuropathy; T45.1X5A Adverse effect of antineoplastic and immunosuppressive drugs, initial encounter; J45.909 Unspecified asthma, uncomplicated; E66.01 Morbid (severe) obesity due to excess calories; Z93.3 Colostomy status; Z90.49 Acquired absence of other specified parts of digestive tract; Z79.891 Long term (current) use of opiate analgesic; Z20.822 Contact with and (suspected) exposure to COVID-19
CPT/HCPCS: J1650; J3475; Q9967

== ENCOUNTER 2022-03-27 05:39 | Emergency (ER) | payer OTHER ==
[~2022-03-27] VITALS: Ht 162.6 cm; Wt 115.4 kg
[2022-03-27 06:37] LABS: HEMATOCRIT 25.7 % (37.0-47.0); HEMOGLOBIN 8.6 g/dl (12.0-16.0); IMMATURE GRANULOCYTES 0.6 % (0.0-5.0); MEAN CELL VOLUME 89.9 fL CALC (80.0-100.0); MEAN CORPUSCULAR HGB 30.1 pG CALC (26.0-32.0); MEAN CORPUSCULAR HGB CONC 33.5 g/dL CAL (32.0-36.0); NEUT# 4.66 thou/uL (2.00-7.15); RED BLOOD COUNT 2.86 mill/uL (4.20-5.60)
[2022-03-27 06:45] VITALS: BP 145/90
[2022-03-27 06:52] LABS: ALBUMIN 2.8 g/dL (3.2-5.0); ALKALINE PHOSPHATASE 688 u/l (38-126); AMYLASE 44 u/l (30-110); ANION GAP 9 (6-22 (CALC)); BILIRUBIN, TOTAL 1.4 mg/dL (0.0-1.4); BUN 4 mg/dL (7-17); BUN/CREATININE RATIO 7 (12-20 (CALC)); CARBON DIOXIDE 34 mmol/l (22-30); CHLORIDE 99 mmol/l (95-108); CREATININE 0.6 mg/dL (0.5-1.0); GFR > 60 ML/MIN (>=60 (CALC)); GFR FOR AFR.AMER. > 60 ML/MIN (>=60 (CALC)); LIPASE 116 u/l (23-300); POTASSIUM 2.5 mmol/l (3.5-5.1); SGOT/AST 196 u/l (14-36); SODIUM 138 mmol/l (137-146); TOTAL PROTEIN 7.7 g/dL (6.3-8.2)
[2022-03-27 08:17] LABS: URINE BILIRUBIN - DIPSTICK NEGATIVE (NEGATIVE); URINE BLOOD DIPSTICK NEGATIVE (NEGATIVE); URINE COLOR YELLOW; URINE GLUCOSE - DIPSTICK NEGATIVE (NEGATIVE); URINE KETONE NEGATIVE (NEGATIVE); URINE LEUK ESTERASE NEGATIVE (NEGATIVE); URINE PH 6.5 (4.5-8.0); URINE PROTEIN - DIPSTICK NEGATIVE (NEG-TRACE); URINE SPECIFIC GRAVITY <=1.005; URINE UROBILINOGEN - DIPSTICK 0.2 E.U./dL (0.2)
[2022-03-27 08:25] LABS: URINE NITRITE - DIPSTICK NEGATIVE (Negative)
[2022-03-27] MEDS ORDERED: DILAUDID2 MG PO ×2 (09:09→10:14)
== END 2022-03-27 10:05 | disposition home or self-care (01) ==
LOC: ED 05:39
PROVIDERS: Emergency Medicine
DX: G89.3 Neoplasm related pain (acute) (chronic) (principal); C18.9 Malignant neoplasm of colon, unspecified; C78.7 Secondary malignant neoplasm of liver and intrahepatic bile duct; E87.6 Hypokalemia; E83.42 Hypomagnesemia; R11.2 Nausea with vomiting, unspecified; D50.9 Iron deficiency anemia, unspecified; E66.01 Morbid (severe) obesity due to excess calories; Z93.3 Colostomy status; Z79.891 Long term (current) use of opiate analgesic
CPT/HCPCS: J3475; Q9967

== ENCOUNTER 2022-04-01 12:39 | Observation (INO) | payer OTHER ==
[2022-04-01] VITALS (11 sets, daily range): BP systolic 109–143; BP diastolic 70–92
[~2022-04-01] VITALS: Ht 162.6 cm; Wt 106.8 kg
[~2022-04-01 12:39] MED LIST changes: +DILAUDID2 MG PO
[2022-04-01 13:28] LABS: HEMATOCRIT 23.5 % (37.0-47.0); IMMATURE GRANULOCYTES 0.7 % (0.0-5.0); MEAN CELL VOLUME 87.4 fL CALC (80.0-100.0); MEAN CORPUSCULAR HGB 29.7 pG CALC (26.0-32.0); NEUT# 4.66 thou/uL (2.00-7.15); RED BLOOD COUNT 2.69 mill/uL (4.20-5.60); RED CELL DISTRI WIDTH 16.2 % (11.5-15.5)
[2022-04-01 13:37] LABS: ALBUMIN 2.9 g/dL (3.2-5.0); ALKALINE PHOSPHATASE 917 u/l (38-126); BUN 3 mg/dL (7-17); BUN/CREATININE RATIO 5 (12-20 (CALC)); CARBON DIOXIDE 35 mmol/l (22-30); CHLORIDE 100 mmol/l (95-108); CREATININE 0.6 mg/dL (0.5-1.0); GFR > 60 ML/MIN (>=60 (CALC)); GFR FOR AFR.AMER. > 60 ML/MIN (>=60 (CALC)); LIPASE 67 u/l (23-300); SGOT/AST 122 u/l (14-36); SODIUM 140 mmol/l (137-146); TOTAL PROTEIN 8.2 g/dL (6.3-8.2)
[2022-04-01 13:39] LABS: ANION GAP 7 (6-22 (CALC)); POTASSIUM 2.4 mmol/l (3.5-5.1)
[2022-04-01 18:03] LABS: URINE BILIRUBIN - DIPSTICK NEGATIVE (NEGATIVE); URINE BLOOD DIPSTICK NEGATIVE (NEGATIVE); URINE COLOR YELLOW; URINE GLUCOSE - DIPSTICK NEGATIVE (NEGATIVE); URINE KETONE NEGATIVE (NEGATIVE); URINE LEUK ESTERASE NEGATIVE (NEGATIVE); URINE PROTEIN - DIPSTICK NEGATIVE (NEG-TRACE); URINE UROBILINOGEN - DIPSTICK 0.2 E.U./dL (0.2)
[2022-04-01 18:06] LABS: URINE NITRITE - DIPSTICK NEGATIVE (Negative)
[2022-04-02 00:01] VITALS: BP 114/76
[2022-04-02 04:00] VITALS: BP 119/76
[2022-04-02 04:01] VITALS: BP 119/76
[2022-04-02 05:05] LABS: HEMATOCRIT 23.3 % (37.0-47.0); HEMOGLOBIN 7.6 g/dl (12.0-16.0); MEAN CELL VOLUME 92.1 fL CALC (80.0-100.0); MEAN CORPUSCULAR HGB CONC 32.6 g/dL CAL (32.0-36.0); RED BLOOD COUNT 2.53 mill/uL (4.20-5.60); RED CELL DISTRI WIDTH 16.9 % (11.5-15.5)
[2022-04-02 05:20] LABS: ANION GAP 9 (6-22 (CALC)); BUN 2 mg/dL (7-17); BUN/CREATININE RATIO 4 (12-20 (CALC)); CARBON DIOXIDE 32 mmol/l (22-30); CHLORIDE 101 mmol/l (95-108); CREATININE 0.6 mg/dL (0.5-1.0); GFR > 60 ML/MIN (>=60 (CALC)); GFR FOR AFR.AMER. > 60 ML/MIN (>=60 (CALC)); POTASSIUM 2.7 mmol/l (3.5-5.1); SODIUM 140 mmol/l (137-146)
[2022-04-02 05:25] LABS: MAGNESIUM 1.4 mg/dL (1.6-2.3)
[2022-04-02 06:09] VITALS: BP 114/76
[2022-04-02] MEDS ORDERED: LORTAB 1010 MG PO (10:53)
[2022-04-02 14:35] VITALS: BP 113/82
== END 2022-04-02 17:17 | disposition home or self-care (01) ==
LOC: ED 12:39 → ED-I 16:07 → ED 16:22 → MS2 16:23
PROVIDERS: Family Medicine; ADMIT Internal Medicine; ATTEND Internal Medicine
DX: G89.3 Neoplasm related pain (acute) (chronic) (principal); E87.6 Hypokalemia; E83.42 Hypomagnesemia; C18.9 Malignant neoplasm of colon, unspecified; C78.7 Secondary malignant neoplasm of liver and intrahepatic bile duct; C78.89 Secondary malignant neoplasm of other digestive organs; E66.01 Morbid (severe) obesity due to excess calories; K94.09 Other complications of colostomy; G62.0 Drug-induced polyneuropathy; T45.1X5A Adverse effect of antineoplastic and immunosuppressive drugs, initial encounter; Y83.3 Surgical operation with formation of external stoma as the cause of abnormal reaction of the patient, or of later complication, without mention of misadventure at the time of the procedure; Z79.899 Other long term (current) drug therapy; Z90.49 Acquired absence of other specified parts of digestive tract; Z20.822 Contact with and (suspected) exposure to COVID-19
CPT/HCPCS: G0378; J1650; J3475; Q9967

== ENCOUNTER 2022-04-05 20:44 | Emergency (ER) | payer OTHER ==
[2022-04-05] VITALS (12 sets, daily range): BP systolic 115–146; BP diastolic 64–101
[~2022-04-05] VITALS: Ht 162.6 cm; Wt 123.0 kg
[~2022-04-05 20:44] MED LIST changes: +LORTAB 1010 MG PO
[2022-04-05 21:19] LABS: HEMATOCRIT 24.9 % (37.0-47.0); HEMOGLOBIN 8.1 g/dl (12.0-16.0); IMMATURE GRANULOCYTES 0.6 % (0.0-5.0); MEAN CELL VOLUME 91.9 fL CALC (80.0-100.0); MEAN CORPUSCULAR HGB 29.9 pG CALC (26.0-32.0); MEAN CORPUSCULAR HGB CONC 32.5 g/dL CAL (32.0-36.0); NEUT# 6.54 thou/uL (2.00-7.15); RED BLOOD COUNT 2.71 mill/uL (4.20-5.60); RED CELL DISTRI WIDTH 18.3 % (11.5-15.5)
[2022-04-05] MEDS ORDERED: ALBUTEROL108 MCG/AC (21:33)
[2022-04-05 21:40] LABS: ALBUMIN 2.9 g/dL (3.2-5.0); ALKALINE PHOSPHATASE 869 u/l (38-126); AMYLASE 55 u/l (30-110); ANION GAP 6 (6-22 (CALC)); BILIRUBIN, TOTAL 2.5 mg/dL (0.0-1.4); CARBON DIOXIDE 35 mmol/l (22-30); CHLORIDE 102 mmol/l (95-108); CREATININE 0.5 mg/dL (0.5-1.0); GFR > 60 ML/MIN (>=60 (CALC)); GFR FOR AFR.AMER. > 60 ML/MIN (>=60 (CALC)); LIPASE 94 u/l (23-300); POTASSIUM 2.6 mmol/l (3.5-5.1); SGOT/AST 120 u/l (14-36); SODIUM 140 mmol/l (137-146); TOTAL PROTEIN 8.3 g/dL (6.3-8.2)
[2022-04-05 21:43] LABS: BUN 2 mg/dL (7-17); BUN/CREATININE RATIO 4 (12-20 (CALC))
[2022-04-06] VITALS (8 sets, daily range): BP systolic 111–118; BP diastolic 71–79
[2022-04-06 00:29] LABS: URINE BILIRUBIN - DIPSTICK NEGATIVE (NEGATIVE); URINE BLOOD DIPSTICK MODERATE (NEGATIVE); URINE COLOR YELLOW; URINE GLUCOSE - DIPSTICK NEGATIVE (NEGATIVE); URINE KETONE NEGATIVE (NEGATIVE); URINE LEUK ESTERASE NEGATIVE (NEGATIVE); URINE PH 6.5 (4.5-8.0); URINE PROTEIN - DIPSTICK NEGATIVE (NEG-TRACE); URINE SPECIFIC GRAVITY <=1.005; URINE UROBILINOGEN - DIPSTICK 0.2 E.U./dL (0.2)
[2022-04-06 00:30] LABS: URINE NITRITE - DIPSTICK POSITIVE (Negative)
[2022-04-06 00:35] LABS: URINE BACTERIA FEW hpf; URINE SQUAMOUS EPITHELIAL CELL FEW EPI/hpf (0-FEW)
[2022-04-06] MEDS ORDERED: POTASSIUM CHLO20 ME1 PO (00:47)
[2022-04-06] MEDS ORDERED: DILAUDID2 MG PO (00:47)
[2022-04-06] MEDS ORDERED: PHENERGAN25 MG RE (00:47)
== END 2022-04-06 01:37 | disposition home or self-care (01) ==
LOC: ED 20:44
PROVIDERS: Family Medicine
DX: G89.3 Neoplasm related pain (acute) (chronic) (principal); C18.9 Malignant neoplasm of colon, unspecified; C78.7 Secondary malignant neoplasm of liver and intrahepatic bile duct; E87.6 Hypokalemia; K43.5 Parastomal hernia without obstruction or gangrene; E66.01 Morbid (severe) obesity due to excess calories; Z79.891 Long term (current) use of opiate analgesic; Z93.3 Colostomy status
CPT/HCPCS: Q9967

== ENCOUNTER 2022-04-10 03:39 | Emergency (ER) | payer OTHER ==
[~2022-04-10] VITALS: Ht 162.6 cm; Wt 115.4 kg
[2022-04-10] VITALS (7 sets, daily range): BP systolic 118–140; BP diastolic 72–89
[~2022-04-10 03:39] MED LIST changes: +ALBUTEROL108 MCG/AC; +PHENERGAN25 MG RE; +POTASSIUM CHLO20 ME1 PO
[2022-04-10 04:29] LABS: IMMATURE GRANULOCYTES 0.5 % (0.0-5.0); MEAN CELL VOLUME 90.8 fL CALC (80.0-100.0); MEAN CORPUSCULAR HGB 30.5 pG CALC (26.0-32.0); MEAN CORPUSCULAR HGB CONC 33.6 g/dL CAL (32.0-36.0); NEUT# 3.96 thou/uL (2.00-7.15); RED BLOOD COUNT 4.13 mill/uL (4.20-5.60); RED CELL DISTRI WIDTH 19.7 % (11.5-15.5)
[2022-04-10 04:32] LABS: HEMATOCRIT 37.5 % (37.0-47.0); HEMOGLOBIN 12.6 g/dl (12.0-16.0)
[2022-04-10 04:43] LABS: ALKALINE PHOSPHATASE 933 u/l (38-126); AMYLASE 47 u/l (30-110); BUN 3 mg/dL (7-17); BUN/CREATININE RATIO 6 (12-20 (CALC)); CARBON DIOXIDE 37 mmol/l (22-30); CHLORIDE 101 mmol/l (95-108); CREATININE 0.5 mg/dL (0.5-1.0); GFR > 60 ML/MIN (>=60 (CALC)); GFR FOR AFR.AMER. > 60 ML/MIN (>=60 (CALC)); LIPASE 140 u/l (23-300); SGOT/AST 154 u/l (14-36); SODIUM 140 mmol/l (137-146); TOTAL PROTEIN 8.5 g/dL (6.3-8.2)
[2022-04-10 04:44] LABS: ANION GAP 5 (6-22 (CALC)); POTASSIUM 2.6 mmol/l (3.5-5.1)
[2022-04-10 04:54] LABS: MYOGLOBIN 17 ng/mL (0 - 62)
== END 2022-04-10 07:20 | disposition home or self-care (01) ==
LOC: ED 03:39
PROVIDERS: Emergency Medicine
DX: G89.3 Neoplasm related pain (acute) (chronic) (principal); E87.6 Hypokalemia; C18.9 Malignant neoplasm of colon, unspecified; C78.7 Secondary malignant neoplasm of liver and intrahepatic bile duct; C78.00 Secondary malignant neoplasm of unspecified lung; E66.01 Morbid (severe) obesity due to excess calories; Z93.3 Colostomy status

== ENCOUNTER 2022-04-13 10:08 | Emergency (ER) | payer OTHER ==
[2022-04-13] VITALS (9 sets, daily range): BP systolic 110–144; BP diastolic 61–94
[~2022-04-13] VITALS: Ht 162.6 cm; Wt 116.0 kg
[2022-04-13 11:52] LABS: IMMATURE GRANULOCYTES 0.4 % (0.0-5.0); MEAN CELL VOLUME 91.7 fL CALC (80.0-100.0); MEAN CORPUSCULAR HGB 30.1 pG CALC (26.0-32.0); MEAN CORPUSCULAR HGB CONC 32.8 g/dL CAL (32.0-36.0); NEUT# 5.95 thou/uL (2.00-7.15); RED BLOOD COUNT 2.89 mill/uL (4.20-5.60); RED CELL DISTRI WIDTH 19.4 % (11.5-15.5)
[2022-04-13 11:53] LABS: HEMATOCRIT 26.5 % (37.0-47.0); HEMOGLOBIN 8.7 g/dl (12.0-16.0)
[2022-04-13 12:11] LABS: ALKALINE PHOSPHATASE 925 u/l (38-126); BUN 3 mg/dL (7-17); BUN/CREATININE RATIO 5 (12-20 (CALC)); CARBON DIOXIDE 34 mmol/l (22-30); CHLORIDE 98 mmol/l (95-108); CREATININE 0.5 mg/dL (0.5-1.0); GFR FOR AFR.AMER. > 60 ML/MIN (>=60 (CALC)); GFR OTHER RACES > 60 ML/MIN (>=60 (CALC)); LIPASE 70 u/l (23-300); MAGNESIUM 1.4 mg/dL (1.6-2.3); SODIUM 138 mmol/l (137-146); TOTAL PROTEIN 9.1 g/dL (6.3-8.2)
[2022-04-13 12:13] LABS: ANION GAP 8 (6-22 (CALC)); BILIRUBIN, TOTAL 6.9 mg/dL (0.0-1.4); SGOT/AST 320 u/l (14-36)
[2022-04-13 12:14] LABS: POTASSIUM 2.4 mmol/l (3.5-5.1)
[2022-04-13 12:31] LABS: URINE BILIRUBIN - DIPSTICK LARGE (NEGATIVE); URINE BLOOD DIPSTICK NEGATIVE (NEGATIVE); URINE COLOR YELLOW; URINE GLUCOSE - DIPSTICK NEGATIVE (NEGATIVE); URINE KETONE NEGATIVE (NEGATIVE); URINE LEUK ESTERASE NEGATIVE (NEGATIVE); URINE NITRITE - DIPSTICK NEGATIVE (Negative); URINE PROTEIN - DIPSTICK NEGATIVE (NEG-TRACE)
[2022-04-13 12:35] LABS: ACT PARTIAL THROMBO TIME 27.6 SECONDS (20.0-32.5); INTERNATIONAL NORMALIZED RATIO 1.3 RATIO (0.7-1.3); PROTHROMBIN TIME 13.4 SECONDS (9.0-12.5)
== END 2022-04-13 13:55 | disposition short-term general hospital (02) ==
LOC: ED 10:08
DX: K92.2 Gastrointestinal hemorrhage, unspecified (principal); D50.0 Iron deficiency anemia secondary to blood loss (chronic); E87.6 Hypokalemia; R51.9 Headache, unspecified; C18.9 Malignant neoplasm of colon, unspecified; C78.7 Secondary malignant neoplasm of liver and intrahepatic bile duct; C78.00 Secondary malignant neoplasm of unspecified lung; E66.01 Morbid (severe) obesity due to excess calories; Z93.3 Colostomy status; Z95.828 Presence of other vascular implants and grafts; Z79.899 Other long term (current) drug therapy; Z20.822 Contact with and (suspected) exposure to COVID-19